=== PATIENT | female | born 1985 | race Caucasian/White ===

== ENCOUNTER 2021-05-13 01:37 | Emergency (ER) | payer MEDICAID, SELFPAY ==
[2021-05-13 01:39] VITALS: BP 149/82; PULSE 80; RESP 16; TEMP 36.6; O2SAT 99; BMI 21.2
[2021-05-13 01:46] LABS: Influenza A, PCR Not Detected (NotDetected); Influenza B, PCR Not Detected (NotDetected)
[2021-05-13 02:10] LABS: POC Glucose,Bedside 596 (70-110)
[2021-05-13 02:17] LABS: Coronavirus 19, PCR Detected (NotDetected)
[2021-05-13 02:37] LABS: Basophils # 0.1 K/mm3 (0-0.2); Basophils % 0.5 % (0.1-2.0); Eosinophils # 0.2 K/mm3 (0.0-0.4); Eosinophils % 1.5 % (0.1-12.0); Hematocrit 41.4 % (37.0-47.0); Hemoglobin 13.6 g/dL (12.2-16.2); Lymphocytes # 2.8 K/mm3 (0.7-4.5); Lymphocytes % 26.5 % (10-50); Mean Corpuscular HGB Conc 32.9 g/dL (31.8-35.4); Mean Corpuscular Hemoglobin 29.6 pg (27.0-31.2); Mean Corpuscular Volume 89.9 fl (81-99); Mean Platelet Volume 7.9 fl (7.4-10.4); Monocytes # 0.3 K/mm3 (0.1-1.0); Monocytes % 2.6 % (1.7-9.3); Neutrophils # 7.2 K/mm3 (1.8-7.8); Neutrophils % 68.9 % (37.0-80.0); Platelet Count 433 K/mm3 (142-424); Red Cell Distribution Width 12.1 % (11.5-17.5); White Blood Count 10.4 K/mm3 (4.8-10.8)
--- NOTE | 2021-05-13 02:53 | HMH.EDMCLR ---
ED Disposition Clinical Impression: COVID-19 Diabetes mellitus Qualifiers: Diabetes mellitus type: type 2 Diabetes mellitus residential insulin use: unspecified residential insulin use status Diabetes mellitus complication status: with other specified complication Qualified Code(s): E11.69 - Type 2 diabetes mellitus with other specified complication Disposition: Home, Self-Care Condition on Discharge: Fair Instructions: DI for COVID-19 (Suspected or Confirmed ) Additional Instructions: fluids and use meds as directed Referrals: Provider,Referral, MD [Primary Care Provider] - - Critical Care Critical Care Time: No Attestation: On 05/13/21, the high probability of a clinically significant, sudden or life threatening deterioration of the following system(s) required my full and direct attention, intervention and personal management. The time I documented below is in addition to time spent performing reported procedures but includes the following listed in this critical care notation. Medical Decision Making - Medical Records Medical records reviewed: Yes: I reviewed the patient's medical records. - Mario Inquiry Pt receiving controlled substance: No Vital Signs: 05/13/21 01:39 Temperature 97.9 F Temperature Source Oral Pulse Rate [Right] 80 Respiratory Rate 16 Blood Pressure [Right Arm] 149/82 H Blood Pressure Mean [Right Arm] 104 02 Sat by Pulse Oximetry 99 - Lab Data Lab results reviewed: Yes: I reviewed the patient's lab results. Lab Results 05/13/21 01:44: SARS-CoV-2 (PCR) Detected A, Influenza A Untype (PCR) Not detected, Influenza Type B (PCR) Not detected 05/13/21 02:02: POC Glucose 596 H* 05/13/21 02:22: WBC 10.4, RBC 4.60, Hgb 13.6, Hct 41.4, MCV 89.9, MCH 29.6, MCHC 32.9, RDW 12.1, Plt Count 433 H, MPV 7.9, Neut % (Auto) 68.9, Lymph % (Auto) 26.5, Ward % (Auto) 2.6, Eos % (Auto) 1.5, Baso % (Auto) 0.5, Neut # (Auto) 7.2, Lymph # (Auto) 2.8, Ward # (Auto) 0.3, Eos # (Auto) 0.2, Baso # (Auto) 0.1, ESR 58 H 05/13/21 02:22: Sodium 129 L, Potassium 5.0, Chloride 94 L, Carbon Dioxide 22, Anion Gap 18.0 H, BUN 20 H, Creatinine 0.80, Estimated Creat Clear 97, Estimated GFR 81, Est GFR ( Amer) 98, Glucose 606 H*, Calcium 9.9, Total Bilirubin 0.3, AST 23, ALT 18, Alkaline Phosphatase 142 H, C-Reactive Protein 18.8 H, Total Protein 7.1, Albumin 3.7, Globulin 3.4 H, Albumin/Globulin Ratio 1.1, Acetone Level None detected 05/13/21 03:56: POC Glucose 355 H* Result diagrams: 05/13/21 02:22 05/13/21 02:22 Orders (Tests/Meds): ED MEDICATIONS Generic Name Dose Route Start Last Admin Trade Name Freq PRN Reason Stop Dose Admin Sodium Chloride 1,000 mls @ 999 mls/hr 05/13/21 02:30 05/13/21 02:30 Sod Chlor 0.9% 1000ml Bag IV 05/13/21 03:30 999 mls/hr .[id number] Administration Discontinued Medications Generic Name Dose Route Start Last Admin Trade Name Freq PRN Reason Stop Dose Admin Insulin Human Regular 5 unit 05/13/21 02:26 05/13/21 02:30 Insulin Human Regular 100 Units/Ml 10ml Vial IVP 05/13/21 02:27 5 unit ONCE ONE Administration Ketorolac Tromethamine 30 mg 05/13/21 02:32 05/13/21 02:36 Ketorolac 30mg/Ml Vial IV 05/13/21 02:33 30 mg ONCE ONE Administration Ondansetron HCl 4 mg 05/13/21 02:27 05/13/21 02:30 Ondansetron 4mg/2ml Vial IV 05/13/21 02:28 4 mg ONCE ONE Administration ORDERS Category Date Time Status Acetone, Serum (Rapid) Stat Lab 05/13/21 02:22 Results C-Reactive Protein Stat Lab 05/13/21 02:22 Results Comprehensive Metabolic Panel Stat Lab 05/13/21 02:22 Results Procalcitonin Stat Lab 05/13/21 02:22 Results UDS [Drug Screen,Urine] Stat Lab 05/13/21 02:25 Ordered Urinalysis and Microscopic Stat Lab 09/15/21 02:25 Ordered - Radiology Data #1 Image(s): Chest Image Reviewed: Yes I have reviewed radiologist's interpretation Preliminary Findings: Abnormal (see report ) Medical Decision Narrative: impro
[2021-05-13 02:55] LABS: Acetone, Serum (Rapid) None Detected (None Detect)
--- NOTE | 2021-05-13 03:07 | XR_ITS ---
PROCEDURE INFORMATION: Exam: XR Chest Exam date and time: 05/13/2021 3:07 AM Age: 36 years old Clinical indication: Cough and shortness of breath; Patient HX: SOA, cough; Additional info: Covid+ TECHNIQUE: Imaging protocol: XR of the chest. Views: 1 view. COMPARISON: No relevant prior studies available. FINDINGS: Lungs: Streaky bilateral perihilar interstitial opacities, likely representing atypical pneumonia. No airspace consolidation. Pleural spaces: No pleural effusion. No pneumothorax. Heart/Mediastinum: Normal heart size. Bones/joints: Sternotomy wires. IMPRESSION: Findings likely representing atypical/viral pneumonia.
[2021-05-13 03:16] LABS: Erythrocyte Sedimentation Rate 58 mm/hr (0-20)
[2021-05-13 03:24] LABS: Alanine Aminotransferase 18 U/L (12-78); Albumin Level 3.7 g/dl (3.5-5.0); Albumin/Globulin Ratio 1.1 (1.1-1.8); Alkaline Phosphatase 142 U/L (38-126); Aspartate Amino Transferase 23 U/L (14-36); Bilirubin,Total 0.3 mg/dl (0.2-1.3); Blood Urea Nitrogen 20 mg/dl (7-17); Calcium 9.9 mg/dl (8.4-10.2); Carbon Dioxide 22 mmol/L (22.0-30.0); Chloride 94 mmol/L (98-107); Creatinine Clearance Estimated 97 mL/min (50-200); Estimated Glomerular Filt Rate 81 ml/min (>60); GFR (African American) 98 ML/MIN (>60); Globulin 3.4 g/dL (1.3-3.2); Sodium 129 mmol/L (136-145); Total Protein,Serum 7.1 g/dl (6.3-8.2)
[2021-05-13 03:30] LABS: C-Reactive Protein 18.8 mg/L (0-4)
[2021-05-13 03:38] LABS: Glucose 606 mg/dl (74-100)
--- NOTE | 2021-05-13 03:44 | PC.NURSE ---
s/w pt's daughter Gisela and she states she will find a ride to here.
[2021-05-13 04:03] LABS: POC Glucose,Bedside 355 (70-110)
[2021-05-13 04:11] LABS: Procalcitonin 0.108 ng/mL (0.0-2.0)
--- NOTE | 2021-05-13 08:15 | PC.NURSE ---
contacted care management about transportation for pt, spoke with alejandro.
--- NOTE | 2021-05-13 08:31 | SW/DCPLANNER ---
RECEIVED A CALL FROM THE ED STATING THIS PATIENT PRESENTED INTO THE ED AND IS COVID POSITIVE AND BLOOD SUGAR ISSUES.. SHE WAS BROUGHT IN FOR A MEDICAL CLEARANCE TO GO TO NURSING HOME BUT WAS FOUND TO HAVE COVID.. SHE HAS A SALEM ADDRESS AND FEDERATED STATED THEY WILL NOT TRANSPORT PATIENT UNTIL SHE GETS HER ADDRESS CHANGED.. I HAVE INFORMED THE NURSE SHE WILL NEED TO CALL MEDICAID SERVICES TO GET HER PHYSICAL ADDRESS CHANGED.. WAITING ON SOME FAMILY TO PICK THIS PATIENT UP..
--- NOTE | 2021-05-13 08:35 | PC.NURSE ---
pt attempting to call family again at this time to see about a ride home. care management says unable to get [facility] bus to transport pt r/t pt does not have correct address listed with the state for her medicaid.
[2021-05-13 09:55] VITALS: BP 106/69; PULSE 70; RESP 16; TEMP 36.7; O2SAT 97
== END 2021-05-13 09:56 | disposition home or self-care (01) ==
PROVIDERS: Emergency Provider Emergency Medicine
DX: U07.1 COVID-19 (principal); E11.65 Type 2 diabetes mellitus with hyperglycemia; F17.210 Nicotine dependence, cigarettes, uncomplicated; F12.10 Cannabis abuse, uncomplicated; Z79.84 Long term (current) use of oral hypoglycemic drugs
CPT/HCPCS: 71045; 80053; 82009; 82962; 84145; 85025; 85651; 86140; 96365; 96375; 99283; C9803; J2405; U0003; U0005